=== PATIENT | male | born 1965 | race Caucasian/White ===

== ENCOUNTER → 2018-10-14 | Outpatient (CLI) | payer OTHER ==
--- NOTE | 2018-10-14 11:45 | RAD ---
EXAM: Left knee, 2 views. HISTORY: Pain. COMPARISON: None. FINDINGS: 2 views left knee are obtained. There is medial and patellofemoral compartment joint space narrowing and medial compartment subchondral sclerosis. There is tricompartmental spurring. There is a moderate joint effusion. There is no fracture, dislocation or subluxation. IMPRESSION: 1. Mild medial compartment predominant tricompartmental osteoarthritis of the left knee. 2. Moderate left knee effusion. Electronically signed by: Lina Wilson MD (10/14/2018 11:42 AM) [id number]
== END | disposition home or self-care (01) ==
LOC: RAD 09:42
PROVIDERS: ATTEND Family Medicine
DX: M25.462 Effusion, left knee (principal); M17.12 Unilateral primary osteoarthritis, left knee
CPT/HCPCS: 73560